=== PATIENT | male | born 1995 | race Hispanic/Latino ===

== ENCOUNTER 2022-07-01 16:10 | Emergency (ER) | payer SELFPAY ==
[2022-07-01] MEDS ORDERED: Ketorolac Tromethamine 30 MG/ML VIAL ONE (19:33)
[2022-07-01] MEDS ORDERED: Acetaminophen 500 MG TAB ONE (19:33)
== END 2022-07-01 19:55 | disposition home or self-care (01) ==
LOC: ERS 16:10
DX: M79.641 Pain in right hand (principal)
CPT/HCPCS: 96372; J1885